=== PATIENT | female | born 1995 | race Caucasian/White ===

== ENCOUNTER → 2017-03-08 | Outpatient (CLI) | payer OTHER ==
[~2017-03-08] MED LIST: ACET50TA PO; IBUP80TA PO
[2017-03-08 19:13] LABS: BASO % 0.3 % (0.0-1.0); EOS # 0.4 K/mm3 (0.0-0.50); EOS % 4.1 % (0.0-3.0); LARGE UNSTAINED CELL # 0.1 K/mm3 (0.0-0.4); LYMPH # 2.2 K/mm3 (1.5-6.5); LYMPH % 24.3 % (24.0-44.0); MEAN CORPUSCULAR HEMOGLOBIN 27.5 pg (27.0-33.0); MEAN CORPUSCULAR HGB CONC 32.4 g/dl (32.0-36.5); MEAN CORPUSCULAR VOLUME 85.1 fl (80.0-96.0); MONO # 0.5 K/mm3 (0.0-0.8); MONO % 5.6 % (0.0-5.0); NEUTROPHILS # 5.6 K/mm3 (1.8-7.7); NEUTROPHILS % 64.7 % (36.0-66.0); PLATELET COUNT, AUTOMATED 272 k/mm3 (150-450); RED CELL DISTRIBUTION WIDTH 13.3 % (11.5-14.5); WHITE BLOOD COUNT 8.7 K/mm3 (4.0-10.0)
[2017-03-10 11:03] LABS: HBsAg Prenatal NEGATIVE (NEGATIVE)
== END ==
LOC: M SMT 13:57
PROVIDERS: ATTEND Advanced Practice Midwife
DX: Z34.81 Encounter for supervision of other normal pregnancy, first trimester (principal)

== ENCOUNTER → 2017-04-22 | Outpatient (CLI) | payer OTHER ==
--- NOTE | 2017-04-23 03:17 | REP ---
Clinical: Anatomical evaluation. Comparison: None . Findings: Examination demonstrates a single live intrauterine in cephalic presentation. motion is identified by technologist. Placenta is noted posteriorly and grade zero without evidence for placenta previa or abruption. Amniotic fluid volume is normal. Cervix measures 4.6 cm in length and appears closed. No evidence for nuchal cord. Gestational age by LMP 19 weeks 6 days with ESTELLE 09/10/2017 . Gestational age by current measurements 18 weeks 1 day with ESTELLE 09/22/2017 . FHR equals 144 beats per minute. BPD 4.1 cm 18 weeks 3 days HC 15.1 cm 18 weeks 1 day AC 12.8 cm 18 weeks 2 days FL 2.7 cm 18 weeks 0 days HL 2.6 cm 18 weeks 2 days HC/AC ratio 1.18 Estimated weight 229 grams ( 49th percentile). Anatomical assessment demonstrates normal structures including cranium, choroid plexus, cavum, cerebellum/posterior fossa, facial features, lungs, four-chamber heart/ventricular outflow tracts, diaphragm, stomach, cord insertion/three-vessel cord, kidneys/bladder, spine, and extremities. Impression: 1. Single live intrauterine in cephalic presentation demonstrating appropriate interval growth. 2. Anatomical assessment is complete and normal. Signed by Crow Eaton MD 04/23/2017 03:09 A
== END ==
LOC: M SMT 13:01
PROVIDERS: ATTEND Advanced Practice Midwife
DX: Z34.82 Encounter for supervision of other normal pregnancy, second trimester (principal)

== ENCOUNTER 2017-05-22 12:43 | Outpatient (CLI) | payer OTHER ==
[~2017-05-22] VITALS: Ht 162.6 cm; Wt 70.0 kg
[2017-05-22] MEDS ORDERED: LR 1,000 ML IV SCH (12:58)
[2017-05-22] MEDS ORDERED: LACTATED RINGER'S 1000 ML IV STA (12:58)
[2017-05-22 13:01] VITALS: BP 118/60
[2017-05-22 13:22] LABS: BASO % 0.3 % (0.0-1.0); EOS # 0.1 K/mm3 (0.0-0.50); EOS % 0.9 % (0.0-3.0); LARGE UNSTAINED CELL # 0.1 K/mm3 (0.0-0.4); LARGE UNSTAINED CELL % 0.8 % (0.0-4.0); LYMPH # 1.4 K/mm3 (1.5-6.5); LYMPH % 12.4 % (24.0-44.0); MEAN CORPUSCULAR HEMOGLOBIN 28.4 pg (27.0-33.0); MEAN CORPUSCULAR HGB CONC 32.9 g/dl (32.0-36.5); MEAN CORPUSCULAR VOLUME 86.1 fl (80.0-96.0); MONO # 0.4 K/mm3 (0.0-0.8); MONO % 3.9 % (0.0-5.0); NEUTROPHILS # 8.9 K/mm3 (1.8-7.7); NEUTROPHILS % 81.6 % (36.0-66.0); PLATELET COUNT, AUTOMATED 219 k/mm3 (150-450); RED CELL DISTRIBUTION WIDTH 13.6 % (11.5-14.5); WHITE BLOOD COUNT 10.9 K/mm3 (4.0-10.0)
[2017-05-22 13:57] LABS: ALBUMIN 3.2 GM/DL (3.2-5.2); ALKALINE PHOSPHATASE 63 U/L (45-117); ALT/SGPT 7 U/L (12-78); ANION GAP 6 MEQ/L (8-16); AST/SGOT 7 U/L (15-37); BILIRUBIN,TOTAL 0.4 MG/DL (0.2-1.0); BLOOD UREA NITROGEN 6 MG/DL (7-18); CALCIUM LEVEL 8.4 MG/DL (8.5-10.1); CARBON DIOXIDE LEVEL 24 MEQ/L (21-32); CHLORIDE LEVEL 108 MEQ/L (98-107); CREATININE FOR GFR 0.49 MG/DL (0.55-1.02); GLUCOSE, FASTING 92 MG/DL (70-105); POTASSIUM SERUM 4.8 MEQ/L (3.5-5.1); SODIUM LEVEL 138 MEQ/L (136-145); TOTAL PROTEIN 6.4 GM/DL (6.4-8.2)
[2017-05-22 15:32] VITALS: BP 132/67
[2017-09-10] MEDS ORDERED: VALA500T2 PO (08:29)
[2017-09-10] MEDS ORDERED: RANI150C PO (08:29)
== END 2017-05-22 16:16 | disposition home or self-care (01) ==
LOC: M LDO 12:43
PROVIDERS: ATTEND Specialist
DX: O99.89 Other specified diseases and conditions complicating pregnancy, childbirth and the puerperium (principal); Z3A.22 22 weeks gestation of pregnancy; R11.2 Nausea with vomiting, unspecified; R19.7 Diarrhea, unspecified

== ENCOUNTER → 2017-07-15 | Outpatient (CLI) | payer OTHER ==
[~2017-07-15] MED LIST changes: +COLA100C5 PO; +MOTR200T44 PO; +PERC5TAB12 PO; +PERCOCET PO; +RANI150C PO; +VALA500T2 PO
[2017-07-15 13:28] LABS: BASO % 0.2 % (0.0-1.0); EOS # 0.2 K/mm3 (0.0-0.50); EOS % 1.6 % (0.0-3.0); LARGE UNSTAINED CELL # 0.1 K/mm3 (0.0-0.4); LARGE UNSTAINED CELL % 1.2 % (0.0-4.0); LYMPH % 20.5 % (24.0-44.0); MEAN CORPUSCULAR HEMOGLOBIN 27.9 pg (27.0-33.0); MEAN CORPUSCULAR HGB CONC 33.4 g/dl (32.0-36.5); MEAN CORPUSCULAR VOLUME 83.6 fl (80.0-96.0); MONO # 0.6 K/mm3 (0.0-0.8); MONO % 6.6 % (0.0-5.0); NEUTROPHILS # 6.6 K/mm3 (1.8-7.7); NEUTROPHILS % 69.9 % (36.0-66.0); PLATELET COUNT, AUTOMATED 219 k/mm3 (150-450); WHITE BLOOD COUNT 9.4 K/mm3 (4.0-10.0)
== END ==
LOC: M LAB 11:54
PROVIDERS: ATTEND Advanced Practice Midwife
DX: Z34.83 Encounter for supervision of other normal pregnancy, third trimester (principal)

== ENCOUNTER → 2017-08-25 | Outpatient (REF) | payer OTHER | LOC: M LAB REF 16:47 | PROVIDERS: ATTEND Obstetrics & Gynecology | DX: Z34.83 Encounter for supervision of other normal pregnancy, third trimester (principal) ==

== ENCOUNTER 2017-09-15 05:23 | Inpatient (IN) | payer OTHER ==
[2017-09-15] VITALS (7 sets, daily range): BP systolic 113–129; BP diastolic 58–78
[~2017-09-15] VITALS: Ht 162.6 cm; Wt 88.0 kg
[~2017-09-15 05:23] MED LIST changes: -COLA100C5 PO; -MOTR200T44 PO; -PERC5TAB12 PO; -PERCOCET PO
[2017-09-15] MEDS ORDERED: LR 800 ML IV ONE (05:45)
[2017-09-15] MEDS ORDERED: LR 1,000 ML IV SCH ×2 (05:45→10:30)
[2017-09-15] MEDS ORDERED: BICITRA 30ML SOLN UDC PO ONE (05:45)
[2017-09-15 05:55] LABS: MEAN CORPUSCULAR HEMOGLOBIN 27.2 pg (27.0-33.0); MEAN CORPUSCULAR HGB CONC 33.6 g/dl (32.0-36.5); PLATELET COUNT, AUTOMATED 312 10^3/uL (150-450); RED CELL DISTRIBUTION WIDTH 13.9 % (11.5-14.5); WHITE BLOOD COUNT 12.1 10^3/uL (4.0-10.0)
[2017-09-15] MEDS ORDERED: MORPHINE PRES-FREE INJ 10 MG/10 ML VIAL (J2274) As Ordered ONE (08:47)
[2017-09-15] MEDS ORDERED: OXYTOCIN INJ 10 UNITS/ML VIAL (J2590) As Ordered ONE (08:47)
[2017-09-15] MEDS ORDERED: METOCLOPRAMIDE INJ 10MG/2ML VIAL (J2765) IV PRN (08:56)
[2017-09-15] MEDS ORDERED: NALOXONE INJ 0.4 MG/1 ML VIAL (J2310) IV PRN ×2 (08:56)
[2017-09-15] MEDS ORDERED: ONDANSETRON 4MG/2ML VIAL (J2405) IV PRN ×4 (08:56→13:00)
[2017-09-15] MEDS ORDERED: NALBUPHINE HCL 10 MG/ML AMP (J2300) IV PRN ×2 (08:56→10:30)
[2017-09-15] MEDS ORDERED: PRENATAL VITAMINS CHEWABLE TABLET PO SCH (09:00)
[2017-09-15] MEDS: PRENATAL VITAMINS CHEWABLE TABLET PO SCH (09:00)
[2017-09-15] MEDS ORDERED: ePHEDrine SULFATE 25 MG/5 ML(5MG/ML) SYRINGE As Ordered ONE (09:06)
[2017-09-15] MEDS ORDERED: ONDANSETRON 4MG/2ML VIAL (J2405) As Ordered ONE (09:27)
[2017-09-15] MEDS ORDERED: KETOROLAC 60 MG/2 ML VIAL (J1885) As Ordered ONE (09:27)
[2017-09-15 09:53] LABS: CORD GAS O2 SAT V 29.6 %; CORD GAS PCO2 V 45.6 mmHg; CORD GAS PH V 7.34 UNITS; CORD GAS PO2 V 14.9 mmHg; CORD GAS SBC V 21.1 MEQ/L; CORD GAS TCO2 V 25.4 MEQ/L
[2017-09-15] MEDS ORDERED: IBUPROFEN 800 MG TAB PO PRN (10:00)
[2017-09-15] MEDS ORDERED: DOCUSATE SODIUM 100 MG CAP PO PRN ×2 (10:00→13:00)
[2017-09-15] MEDS ORDERED: OXYTOCIN DRIP 30 UNITS in APPROPRIATE DILUENT 1 EA IV ONE (10:00)
[2017-09-15] MEDS ORDERED: DIBUCAINE 1% OINTMENT 30GM TOP PRN (10:00)
[2017-09-15] MEDS ORDERED: MEASLES,MUMPS,RUBELLA VACCINE INJ (MMR-II) (90707) SC SCH ×2 (10:00→13:00)
[2017-09-15] MEDS ORDERED: METHYLERGONOVINE MALEATE 0.2 MG TAB PO PRN (10:00)
[2017-09-15] MEDS ORDERED: ACETAMINOPHEN 500 MG TAB PO PRN (10:00)
[2017-09-15] MEDS ORDERED: RHOGAM 300 MCG (1500 IU) INJ (J2790) IM SCH ×2 (10:00→13:00)
[2017-09-15] MEDS ORDERED: MEPERIDINE INJ 25 MG/ML VIAL (J2175) IV PRN (10:30)
[2017-09-15] MEDS ORDERED: fentaNYL 100 MCG/2 ML INJECTION (J3010) IV PRN (10:30)
[2017-09-15] MEDS ORDERED: diphenhydrAMINE INJ 50MG/ML VIAL (J1200) IV PRN (10:30)
[2017-09-15] MEDS: LR 1,000 ML IV SCH ×2 (13:00→20:47)
[2017-09-15] MEDS ORDERED: PERCOCET 5MG/325MG TAB PO PRN (13:00)
[2017-09-15] MEDS ORDERED: KETOROLAC 30 MG/ML VIAL (J1885) IV SCH (14:00)
[2017-09-15] MEDS: KETOROLAC 30 MG/ML VIAL (J1885) IV SCH ×2 (15:39→21:26)
[2017-09-16 02:00] VITALS: BP 116/62
[2017-09-16] MEDS: KETOROLAC 30 MG/ML VIAL (J1885) IV SCH (02:29)
[2017-09-16 06:03] VITALS: BP 117/62
[2017-09-16 07:10] LABS: MEAN CORPUSCULAR HEMOGLOBIN 27.3 pg (27.0-33.0); MEAN CORPUSCULAR HGB CONC 32.5 g/dl (32.0-36.5); PLATELET COUNT, AUTOMATED 241 10^3/uL (150-450); WHITE BLOOD COUNT 10.5 10^3/uL (4.0-10.0)
--- NOTE | 2017-09-16 07:30 | RO ---
DATE OF PROCEDURE: 09/15/2017 PREPROCEDURE DIAGNOSIS: 39 and 1/7 weeks gestation, active genital herpes simplex virus (HSV) infection. POSTPROCEDURE DIAGNOSIS: 39 and 1/7 weeks gestation, active genital herpes simplex virus (HSV) infection. PROCEDURE: Primary low transverse section. SURGEON: Dr. Jayesh Griffith CIGAR MAKING MACHINE SUPERVISOR: Shreya Galo CNM ANESTHESIA: Spinal. ESTIMATED BLOOD LOSS: 500 mL. URINE OUTPUT: 50 mL. FINDINGS: 7 pound 10 ounce or 3470 gram male infant, Apgars 9 and 9. Nuchal cord times two. Normal uterus, fallopian tubes and ovaries. DESCRIPTION OF PROCEDURE: The patient was taken to the operating room where spinal anesthesia was induced. She was prepped and draped in a sterile fashion in the supine position. A Hinton catheter was placed. A Pfannenstiel skin incision was made with the scalpel and carried through to the fascia. The fascia was nicked and extended. The fascia was dissected off the rectus muscles. The rectus muscles were divided in the midline and the peritoneal cavity was entered. A bladder flap was created. A curvilinear incision was made in the lower uterine segment until clear fluid was noted. This was extended manually. The was delivered from the vertex position without difficulty. Nuchal cord times two was reduced manually. Shoulders delivered with ease. The infant cried spontaneously and was handed off to the awaiting nurses. The placenta was expressed. The uterus was exteriorized and cleared of clots and debris. The uterine incision was closed with #0 Vicryl in a running locked fashion. A second imbricating layer of #0 Vicryl was placed. The uterus was placed back in the abdominal cavity. The peritoneum was closed with #2-0 Vicryl in a running fashion. The fascia was closed with #0 Vicryl in a running fashion. The deep subcutaneous layer was irrigated and closed with #3-0 chromic. The skin was closed with #4-0 Monocryl subcuticular sutures. Sponge, needle and instrument counts were correct.
[2017-09-16] MEDS: PRENATAL VITAMINS CHEWABLE TABLET PO SCH (08:28)
[2017-09-16 10:40] VITALS: BP 112/62
[2017-09-16] MEDS: IBUPROFEN 800 MG TAB PO SCH ×2 (11:29→18:05)
[2017-09-16 14:30] VITALS: BP 120/68
[2017-09-16 18:11] VITALS: BP 122/64
[2017-09-16 22:00] VITALS: BP 109/60
[2017-09-17] MEDS: IBUPROFEN 800 MG TAB PO SCH ×2 (02:27→11:00)
[2017-09-17 06:00] VITALS: BP 139/83
[2017-09-17] MEDS ORDERED: PERC5TAB12 PO (06:12)
[2017-09-17] MEDS: PERCOCET 5MG/325MG TAB PO PRN ×2 (06:17→12:49)
[2017-09-17] MEDS: PRENATAL VITAMINS CHEWABLE TABLET PO SCH (09:07)
[2017-09-17] MEDS ORDERED: MOTR200T44 PO (09:24)
[2017-09-17] MEDS ORDERED: PERCOCET PO (09:24)
[2017-09-17] MEDS ORDERED: COLA100C5 PO (09:24)
--- NOTE | 2017-09-20 15:28 | DSES ---
DATE OF ADMISSION: 09/15/2017 DATE OF DISCHARGE: 09/17/2017 HISTORY: A 21-year-old (G) 2, para (P) 1, female at 39-1/7 weeks gestation by 11-week ultrasound who presents for primary section due to genital herpes simplex virus (HSV) outbreak on 09/08/2017. She did not take her prescribed HSV prophylaxis as ordered. HOSPITAL COURSE: On 09/15/2017, the patient underwent primary low transverse section without complication for a male . Her postoperative course was unremarkable. She had adequate return of bladder and bowel function. She was deemed stable for discharge on postoperative day number two. ADMISSION DIAGNOSES: 1. , term. 2. Active genital herpes simplex virus (HSV). POSTOPERATIVE DIAGNOSIS: Delivered. PROCEDURE: Primary low transverse section. DISPOSITION: The patient will followup with Dr. Griffith in two weeks. Instructions were reviewed.
== END 2017-09-17 14:05 | disposition home or self-care (01) | DRG 540 ==
LOC: M LDI 05:23 → M OBS 12:04
PROVIDERS: ADMIT Specialist; ATTEND Specialist
PROC: 10D00Z1 Extraction of Products of Conception, Low, Open Approach (ICD-10-PCS; principal; 2017-09-15 08:30)
DX: O98.32 Other infections with a predominantly sexual mode of transmission complicating childbirth (principal); A60.09 Herpesviral infection of other urogenital tract; Z37.0 Single live birth; Z3A.39 39 weeks gestation of pregnancy

== ENCOUNTER → 2018-08-24 | Outpatient (CLI) | payer OTHER ==
[2018-08-24 17:36] LABS: BASO % 0.2 % (0.0-1.0); EOS # 0.2 10^3/uL (0.0-0.50); EOS % 2.5 % (0.0-3.0); HEMATOCRIT 35.7 % (36.0-47.0); HEMOGLOBIN 11.9 g/dl (12.0-15.5); IMMATURE GRANULOCYTE % 0.3 % (0-3.0); LYMPH # 2.3 10^3/uL (1.5-6.5); LYMPH % 27.1 % (24.0-44.0); MEAN CORPUSCULAR HEMOGLOBIN 27.3 pg (27.0-33.0); MEAN CORPUSCULAR HGB CONC 33.3 g/dl (32.0-36.5); MEAN CORPUSCULAR VOLUME 81.9 fl (80.0-96.0); MONO # 0.9 10^3/uL (0.0-0.8); MONO % 10.1 % (0.0-5.0); NEUTROPHILS # 5.2 10^3/uL (1.8-7.7); NEUTROPHILS % 59.8 % (36.0-66.0); PLATELET COUNT, AUTOMATED 254 10^3/uL (150-450); RED BLOOD COUNT 4.36 10^6/uL (4.00-5.40); RED CELL DISTRIBUTION WIDTH 14.2 % (11.5-14.5); WHITE BLOOD COUNT 8.6 10^3/uL (4.0-10.0)
[2018-08-24 22:56] LABS: CHLAMYDIA DNA AMPLIFICATION NEGATIVE (NEGATIVE); GC DNA AMPLIFICATION NEGATIVE (NEGATIVE)
[2018-08-26 13:05] LABS: HBsAg Prenatal NEGATIVE (NEGATIVE); HIV 1&2 SCREEN CENTAUR NEGATIVE (NEGATIVE); RUBELLA IgG QUALITATIVE IMMUNE (IMMUNE)
[2018-08-26 13:05] LABS: HEPATITIS C VIRUS ABY INDEX 0.1 INDEX (<0.8)
== END ==
LOC: M LAB 16:38
DX: Z34.81 Encounter for supervision of other normal pregnancy, first trimester (principal); Z3A.08 8 weeks gestation of pregnancy
CPT/HCPCS: 86762

== ENCOUNTER → 2018-09-20 | Outpatient (CLI) | payer OTHER | LOC: M RAD 13:53 | DX: Z36.89 Encounter for other specified antenatal screening (principal); Z3A.20 20 weeks gestation of pregnancy | CPT/HCPCS: 76811 ==

== ENCOUNTER → 2018-10-11 | Outpatient (CLI) | payer OTHER | LOC: M RAD 15:33 | DX: Z34.82 Encounter for supervision of other normal pregnancy, second trimester (principal); Z3A.22 22 weeks gestation of pregnancy | CPT/HCPCS: 76816 ==

== ENCOUNTER → 2018-12-27 | Outpatient (CLI) | payer OTHER ==
[~2018-12-27] MED LIST changes: -ACET50TA PO; +COLA100C5 PO; +MAPA500T2 PO; +MOTR200T44 PO; +PERC5TAB12 PO; +PERCOCET PO; -VALA500T2 PO; +VALA500T5 PO
[2018-12-27 13:12] LABS: HEMATOCRIT 35.4 % (36.0-47.0); HEMOGLOBIN 11.3 g/dl (12.0-15.5); MEAN CORPUSCULAR HEMOGLOBIN 26.7 pg (27.0-33.0); MEAN CORPUSCULAR HGB CONC 31.9 g/dl (32.0-36.5); MEAN CORPUSCULAR VOLUME 83.5 fl (80.0-96.0); PLATELET COUNT, AUTOMATED 267 10^3/uL (150-450); RED BLOOD COUNT 4.24 10^6/uL (4.00-5.40); WHITE BLOOD COUNT 11.3 10^3/uL (4.0-10.0)
== END ==
LOC: M LAB 11:07
PROVIDERS: ATTEND Advanced Practice Midwife
DX: Z36.89 Encounter for other specified antenatal screening (principal)

== ENCOUNTER → 2019-01-17 | Outpatient (REF) | payer OTHER | LOC: M LAB REF 17:22 | PROVIDERS: ATTEND Advanced Practice Midwife | DX: O34.219 Maternal care for unspecified type scar from previous cesarean delivery (principal); Z3A.00 Weeks of gestation of pregnancy not specified ==

== ENCOUNTER 2019-02-01 21:10 | Outpatient (CLI) | payer OTHER ==
[~2019-02-01] VITALS: Ht 162.6 cm; Wt 90.2 kg
[2019-02-01 21:26] VITALS: BP 143/87
--- NOTE | 2019-02-02 06:51 | IPN ---
DATE: 02/01/2019 Melodie is a 23-year-old, 3, para 2-0-0-2, at 38-6/7 weeks gestation, expected date of confinement (EDC) of 02/09/2019 based on first trimester ultrasound, who presents to labor and delivery today with report of intermittent back cramping and pelvic pressure. She denies vaginal bleeding or leakage of fluid. The fetus has been active. Her care was initiated [facility] in the first trimester. course complicated by a prior section, smoking throughout , HSV II. She has been taking Valtrex since 36 weeks gestation. Denies any signs or symptoms of any outbreak. OBSTETRICAL HISTORY: March 2015, 40 weeks 1 day, 7 pounds 15 ounce male, vaginal delivery. August 2017, 39 weeks, 7 pound 10 ounces male, section due to HSV outbreak. OBSTETRIC LABS: O+, antibody screen negative, rubella immune, VDRL nonreactive. Urine culture no growth. Hepatitis B surface antigen negative. HIV negative. Hepatitis C antibody nonreactive. Gonorrhea and chlamydia negative. She declined genetic serum screening markers. Gestational diabetic screening negative at 116. GBS is positive. PAST MEDICAL HISTORY: HSV II. SURGERIES: Prior section. FAMILY HISTORY: Noncontributory. SOCIAL HISTORY: The patient is single, however, her partner is at bedside as well as her mom for support. She is a smoker, 3/4 pack a day. Denies history of abuse - physical, sexual, emotional. She does have a history of HSV II. ALLERGIES: No known drug allergies. CURRENT MEDICATIONS: - Zantac 150 twice a day - valacyclovir 1 gram daily OBJECTIVE: 98.7 is the temperature, 95 pulse, 18 respirations, BP 131/66. She appears mildly uncomfortable. heart rate is 140 with moderate variability, positive accelerations, no decelerations. Contractions every 10-11 minutes. They do palpate mild. Her sterile vaginal exam is 1-1/2 cm dilated, 75% effaced, minus two station. No bloody show, posterior and moderate texture. ASSESSMENT: Intrauterine at 38-6/7 weeks. heart rate category one. Not in active labor. Normal discomforts of . PLAN: Discharge the patient to home. Keep tomorrow's appointment as scheduled. I did review signs and symptoms of active labor, kick counts and access to care. The patient agrees with the plan.
[2019-02-02] MEDS ORDERED: VALT1TAB PO (12:24)
== END 2019-02-01 22:20 | disposition home or self-care (01) ==
LOC: M LDO 21:10
PROVIDERS: ATTEND Advanced Practice Midwife
DX: O26.893 Other specified pregnancy related conditions, third trimester (principal); R10.30 Lower abdominal pain, unspecified; O47.1 False labor at or after 37 completed weeks of gestation; Z3A.38 38 weeks gestation of pregnancy
CPT/HCPCS: 59025; G0378; G0463

== ENCOUNTER 2019-02-02 11:55 | Inpatient (IN) | payer OTHER ==
[~2019-02-02] VITALS: Ht 162.6 cm; Wt 87.2 kg
[2019-02-02] VITALS (23 sets, daily range): BP systolic 98–141; BP diastolic 50–86
[2019-02-02] MEDS ORDERED: VALT1TAB PO (12:24)
[2019-02-02] MEDS ORDERED: PENICILLIN G POTASSIUM IV 5 MU in D5W MINI-BAG PLUS 100 ML IV STA (12:42)
[2019-02-02] MEDS ORDERED: LR 1,000 ML IV SCH (12:42)
[2019-02-02] MEDS ORDERED: LACTATED RINGER'S 1000 ML IV STA (12:42)
[2019-02-02] MEDS ORDERED: OXYTOCIN DRIP 30 UNITS in APPROPRIATE DILUENT 1 EA IV SCH (12:45)
[2019-02-02 13:15] LABS: HEMOGLOBIN 11.2 g/dl (12.0-15.5); MEAN CORPUSCULAR HEMOGLOBIN 25.9 pg (27.0-33.0); MEAN CORPUSCULAR HGB CONC 32.9 g/dl (32.0-36.5); MEAN CORPUSCULAR VOLUME 78.7 fl (80.0-96.0); PLATELET COUNT, AUTOMATED 260 10^3/uL (150-450); RED BLOOD COUNT 4.32 10^6/uL (4.00-5.40); WHITE BLOOD COUNT 12.3 10^3/uL (4.0-10.0)
--- NOTE | 2019-02-02 13:43 | HPE ---
DATE OF ADMISSION: 02/02/2019 23-year-old, (G) 3, para (P) 2, female at 39 and 0/7 weeks gestation by eight week ultrasound, with expected date of confinement (EDC) 02/09/2019, who presents with contractions every 4-5 minutes occurring since the evening before. She presented to triage the night before with contractions, but no cervical change and was sent home. She denies vaginal bleeding. Contractions increased in intensity. COURSE: The patient initiated care at 8 weeks gestation, 07/01/2018. Her first trimester blood pressure was 134/78. course was significant for history of vaginal herpes. She did start Valtrex treatment at 35 weeks gestation. She has a history of prior and strongly desires trial of labor after (TOLAC) option. OBSTETRICAL HISTORY: 1. March 2015, 40 week vaginal delivery, 7 pound 15 ounce male . 2. August 2017, 39 week delivery, 7 pound 10 ounce male infant. section for genital herpes. MEDICAL HISTORY: None. SURGICAL HISTORY: times one. ALLERGIES: None. SOCIAL HISTORY: The patient smokes a half a pack of cigarettes per day. She denies alcohol or drug use. She lives in [place], [place]. FAMILY HISTORY: Noncontributory. PHYSICAL EXAMINATION: 136/74. Pulse 84. She appears uncomfortable. Head and Neck Exam: Normal. Lungs: Clear. Heart: Regular rate and rhythm. Abdomen: Nontender. Gravid. heart tones Category one. Sterile Vaginal Exam: 3 cm, 90%, -2, posterior, soft, vertex. Contractions every 4-5 minutes, moderate. LABS: Blood type is O positive. Rubella immune. RPR nonreactive. Hepatitis B and C negative. HIV negative. Diabetes screen 116. GBS positive 01/17/2019. ASSESSMENT: 23-year-old, G3, P2, female at 39 and 0/7 weeks gestation who presents in early labor. The patient is a TOLAC candidate. PLAN: Patient is admitted on 02/02/2019. Start antibiotics for GBS prophylaxis.
[2019-02-02] MEDS ORDERED: FENTANYL 2MCG/ML ROPIVACAINE 0.2% IN 0.9% NACL 100ML IVBAG As Ordered ONE (15:14)
[2019-02-02] MEDS ORDERED: EPIDURAL/PCA KEYS XX PRN (17:15)
[2019-02-02] MEDS ORDERED: EPIDURAL COMMENT XX SCH (17:15)
[2019-02-02] MEDS ORDERED: PENICILLIN G POTASSIUM IV 2.5 MU in APPROPRIATE DILUENT 1 EA IV SCH (17:15)
[2019-02-02] MEDS ORDERED: REFRIGERATOR IV KEYS XX PRN (17:15)
[2019-02-02] MEDS ORDERED: LACTATED RINGER'S 1000 ML IV PRN (17:15)
[2019-02-02] MEDS ORDERED: ONDANSETRON 4MG/2ML VIAL (J2405) IV PRN ×2 (17:15→20:30)
[2019-02-02] MEDS ORDERED: ePHEDrine SULFATE 25 MG/5 ML(5MG/ML) SYRINGE IV PRN (17:15)
[2019-02-02] MEDS ORDERED: NALOXONE INJ 0.4 MG/1 ML VIAL (J2310) IV PRN (17:15)
[2019-02-02] MEDS ORDERED: FENTANYL/ROPIVACAINE/NACL BAG 100 ML EPIDURAL SCH (17:15)
[2019-02-02] MEDS ORDERED: diphenhydrAMINE INJ 50MG/ML VIAL (J1200) IV PRN (17:15)
[2019-02-02] MEDS ORDERED: CALCIUM CARBONATE 500 MG CHEW U/D PO ONE (19:30)
[2019-02-02 20:08] LABS: CORD GAS ABE V -3.2; CORD GAS HCO3 V 22.4 MEQ/L; CORD GAS PCO2 V 41.8 mmHg; CORD GAS PH V 7.346 UNITS; CORD GAS SBC V 20.5 MEQ/L; CORD GAS TCO2 V 23.6 MEQ/L
[2019-02-02] MEDS ORDERED: IBUPROFEN 800 MG TAB PO PRN (20:30)
[2019-02-02] MEDS ORDERED: METHYLERGONOVINE MALEATE 0.2 MG TAB PO PRN (20:30)
[2019-02-02] MEDS ORDERED: RHOGAM 300 MCG (1500 IU) INJ (J2790) IM SCH (20:30)
[2019-02-02] MEDS ORDERED: OXYTOCIN DRIP 30 UNITS in APPROPRIATE DILUENT 1 EA IV ONE (20:30)
[2019-02-02] MEDS ORDERED: ACETAMINOPHEN 500 MG TAB PO PRN (20:30)
[2019-02-02] MEDS ORDERED: DOCUSATE SODIUM 100 MG CAP PO PRN (20:30)
[2019-02-02] MEDS ORDERED: DIBUCAINE 1% OINTMENT 30GM TOP PRN (20:30)
[2019-02-02] MEDS ORDERED: MEASLES,MUMPS,RUBELLA VACCINE INJ (MMR-II) (90707) SC SCH (20:30)
[2019-02-03 06:00] VITALS: BP 113/56
[2019-02-03] MEDS: PRENATAL VITAMINS CHEWABLE TABLET PO SCH (08:00)
--- NOTE | 2019-02-03 08:40 | DN ---
DATE OF DELIVERY: 02/02/2019 PREDELIVERY DIAGNOSIS: 39 weeks 0 days gestation, trial of labor after (TOLAC). POSTDELIVERY DIAGNOSIS: Delivered. PROCEDURE: Spontaneous vaginal delivery, successful vaginal after section (). CHICKEN CLEANER: Jayesh Griffith MD ANESTHESIA: Epidural. ESTIMATED BLOOD LOSS: 300 mL. FINDINGS: 7 pound 6 ounce, 3340 gram, male with scores of 8 and 8. DELIVERY SUMMARY: After second stage of approximately 10 minutes, the patient had spontaneous delivery of a 7 pound 6 ounce male infant, scores of 8 and 8, under epidural anesthesia. Nuchal cord times two was reduced manually. The shoulders delivered with ease. The was handed to the mother. The cord was then clamped and cut. The placenta delivered spontaneously and appeared to be intact. The patient received IV Pitocin immediately after delivery of the placenta. There were no vaginal lacerations present. Sponge and needle counts were correct.
[2019-02-03 18:00] VITALS: BP 116/64
[2019-02-04 05:26] VITALS: BP 123/72
[2019-02-04] MEDS ORDERED: MAPA500T2 PO (07:54)
[2019-02-04] MEDS ORDERED: IBUP-1114 PO (07:54)
[2019-02-04] MEDS ORDERED: PRENTAB9 PO (07:54)
[2019-02-04] MEDS: PRENATAL VITAMINS CHEWABLE TABLET PO SCH (08:06)
== END 2019-02-04 15:45 | disposition home or self-care (01) | DRG 560 ==
LOC: M LDO 11:55 → M LDI 12:38 → M OBS 23:11
PROVIDERS: ADMIT Specialist; ATTEND Specialist
PROC: 10E0XZZ Delivery of Products of Conception, External Approach (ICD-10-PCS; principal; 2019-02-02)
DX: O34.211 Maternal care for low transverse scar from previous cesarean delivery (principal); O69.82X0 Labor and delivery complicated by other cord entanglement, without compression, not applicable or unspecified; Z37.0 Single live birth; Z3A.39 39 weeks gestation of pregnancy

== ENCOUNTER 2019-04-21 09:33 | Day surgery (SDC) | payer OTHER ==
[~2019-04-21] VITALS: Ht 162.6 cm; Wt 79.4 kg
[~2019-04-21 09:33] MED LIST changes: +IBUP-1114 PO; +LR 1,000 ML IV SCH; +PRENTAB9 PO; +VALT1TAB PO
[2019-04-21 10:00] LABS: URINE PREG TEST NEGATIVE (NEGATIVE)
[2019-04-21 10:02] LABS: HEMATOCRIT 40.1 % (36.0-47.0); HEMOGLOBIN 12.7 g/dl (12.0-15.5); MEAN CORPUSCULAR HEMOGLOBIN 25.8 pg (27.0-33.0); MEAN CORPUSCULAR HGB CONC 31.7 g/dl (32.0-36.5); MEAN CORPUSCULAR VOLUME 81.5 fl (80.0-96.0); PLATELET COUNT, AUTOMATED 292 10^3/uL (150-450); RED BLOOD COUNT 4.92 10^6/uL (4.00-5.40); WHITE BLOOD COUNT 6.7 10^3/uL (4.0-10.0)
[2019-04-21] MEDS ORDERED: BUPIVACAINE HCL 0.25% 30 ML VIAL As Ordered ONE (10:07)
[2019-04-21] MEDS ORDERED: OXYC1TAB23 PO (10:19)
[2019-04-21] MEDS ORDERED: IBUP-1022 PO (10:20)
[2019-04-21] MEDS ORDERED: MIDAZOLAM INJ 2 MG/2 ML VIAL (J2250) As Ordered ONE (10:39)
[2019-04-21] MEDS ORDERED: PROPOFOL 200 MG/20 ML VIAL As Ordered ONE (10:39)
[2019-04-21] MEDS ORDERED: fentaNYL 100 MCG/2 ML INJECTION (J3010) As Ordered ONE (10:39)
[2019-04-21] MEDS ORDERED: LIDOCAINE 2% INJ 100 MG/5 ML SDV (FOR ANES.) As Ordered ONE (10:39)
[2019-04-21] MEDS ORDERED: dexameTHASONE 4 MG/ML 1ML VIAL (J1100) As Ordered ONE (10:39)
[2019-04-21] MEDS ORDERED: ROCURONIUM BROMIDE 50 MG/5 ML VIAL As Ordered ONE (10:39)
[2019-04-21] MEDS ORDERED: ONDANSETRON 4MG/2ML VIAL (J2405) As Ordered ONE (10:44)
[2019-04-21] MEDS ORDERED: HYDROmorphone HCL 2 MG/ML 1ML VIAL (J1170) As Ordered ONE (10:45)
[2019-04-21] MEDS ORDERED: SUGAMMADEX SODIUM 500 MG/5 ML VIAL (BRIDION) As Ordered ONE (10:53)
[2019-04-21] MEDS ORDERED: KETOROLAC 60 MG/2 ML VIAL (J1885) As Ordered ONE (10:54)
[2019-04-21] MEDS ORDERED: oxyCODONE 5MG TAB As Ordered ONE (11:35)
[2019-04-21] MEDS ORDERED: METOCLOPRAMIDE INJ 10MG/2ML VIAL (J2765) As Ordered ONE (11:35)
[2019-04-21] MEDS ORDERED: oxyCODONE 5MG TAB PO PRN ×2 (11:45→12:00)
[2019-04-21] MEDS ORDERED: LR 1,000 ML IV SCH ×2 (11:45→12:00)
[2019-04-21] MEDS ORDERED: fentaNYL 100 MCG/2 ML INJECTION (J3010) IV PRN (12:00)
[2019-04-21] MEDS ORDERED: PROMETHAZINE INJ 25 MG/ML VIAL (J2550) IV PRN (12:00)
[2019-04-21] MEDS ORDERED: METOCLOPRAMIDE INJ 10MG/2ML VIAL (J2765) IV PRN (12:00)
[2019-04-21 13:32] VITALS: BP 127/68
--- NOTE | 2019-04-22 08:42 | RO ---
DATE OF OPERATION: 04/21/2019 PREOPERATIVE DIAGNOSIS: Undesired fertility. POSTOPERATIVE DIAGNOSIS: Undesired fertility. PROCEDURE: Laparoscopic bilateral salpingectomy. SURGEON: Jayesh Griffith MD SENIOR DESIGNER: ANESTHESIA: General endotracheal. ESTIMATED BLOOD LOSS: Minimal. URINE OUTPUT: 20 mL. FINDINGS: Normal uterus, fallopian tubes, and ovaries. Normal upper abdomen. DESCRIPTION OF PROCEDURE: Operative summary: Patient taken to the operating room where general endotracheal anesthesia was induced. She was prepped and draped in a sterile fashion in the dorsal lithotomy position. Bladder was emptied with a catheter. A ProtonMail uterine tenaculum was used as a manipulator. Periumbilical incision was made with a scalpel. Veress needle was placed through this incision while tenting up on the skin of the abdomen. Intra-abdominal location of the Veress needle was assessed with the use of a saline-filled syringe. Pneumoperitoneum was created. Veress needle was removed. 5 mm trocar using Visiport was inserted through this incision. 5 mm and 8 mm suprapubic ports were placed under direct visualization without difficulty. Tubes were grasped at their fimbriated end with the grasper. LigaSure device was used to coagulate and incise broad ligament attachments and tubes, and tubes were amputated near their origin. Both tubes were removed through the suprapubic port. Pneumoperitoneum was released. All instruments removed. The skin was closed with #4-0 Monocryl subcuticular sutures. Sponge, instrument, and needle counts were correct.
== END 2019-04-21 13:35 | disposition home or self-care (01) ==
LOC: M SDC 09:33
PROVIDERS: ATTEND Specialist
DX: Z30.2 Encounter for sterilization (principal)
CPT/HCPCS: 36415; 58661; 84703; 85027; 88302; J1100; J1170; J1885; J2250; J2405; J2765; J3010

== ENCOUNTER 2020-08-01 20:09 | Emergency (ER) | payer OTHER ==
[~2020-08-01] VITALS: Ht 162.6 cm; Wt 72.7 kg
[~2020-08-01 20:09] MED LIST changes: +IBUP-1022 PO; -LR 1,000 ML IV SCH; +OXYC1TAB23 PO
[2020-08-01] MEDS ORDERED: NAPR500T6 PO (20:14)
[2020-08-01] MEDS ORDERED: NS 1,000 ML IV ONE (20:45)
[2020-08-01] MEDS ORDERED: KETOROLAC 30 MG/ML 1ML VIAL IV ONE (20:45)
[2020-08-01] MEDS ORDERED: ONDANSETRON 4MG/2ML VIAL IV ONE (20:45)
[2020-08-01 21:17] LABS: BASO % 0.3 % (0.0-1.0); EOS # 0.2 10^3/uL (0.0-0.5); EOS % 1.6 % (0.0-3.0); HEMATOCRIT 38.5 % (36.0-47.0); HEMOGLOBIN 12.3 g/dl (12.0-15.5); LYMPH # 1.5 10^3/uL (1.5-5.0); LYMPH % 12.6 % (24.0-44.0); MEAN CORPUSCULAR HGB CONC 31.9 g/dl (32.0-36.5); MEAN CORPUSCULAR VOLUME 81.4 fl (80.0-96.0); MONO % 8.3 % (0.0-5.0); NEUTROPHILS # 9.3 10^3/uL (1.5-8.5); NEUTROPHILS % 76.8 % (36.0-66.0); PLATELET COUNT, AUTOMATED 361 10^3/uL (150-450); RED BLOOD COUNT 4.73 10^6/uL (4.00-5.40); WHITE BLOOD COUNT 12.1 10^3/uL (4.0-10.0)
[2020-08-01 21:43] LABS: ALBUMIN 4.3 GM/DL (3.2-5.2); ALT/SGPT 13 U/L (12-78); BILIRUBIN,DIRECT < 0.1 MG/DL (0.0-0.2); BILIRUBIN,TOTAL 0.4 MG/DL (0.2-1.0); LIPASE 52 U/L (73-393); TOTAL PROTEIN 7.7 GM/DL (6.4-8.2)
--- NOTE | 2020-08-01 21:47 | REPVR ---
PROCEDURE INFORMATION: Exam: US Nonobstetric Pelvis; Complete Exam date and time: 08/01/2020 9:00 PM Age: 24 years old Clinical indication: Pelvic pain; Additional info: Llq pain/irreg menses TECHNIQUE: Imaging protocol: Transabdominal pelvic nonobstetric ultrasound. Complete exam. Real time ultrasound with image documentation. COMPARISON: PELVIS NON-OB COMPLETE US 06/14/2020 11:51 AM FINDINGS: Uterus/cervix: Cervix measures 7.2 x 4.7 x 5.6 cm. Endometrium measures 7 mm. No uterine or endometrial masses are seen. Right adnexa: Ovary is normal. No mass. Normal blood flow. Left adnexa: Ovary is normal. No mass. Normal blood flow. Intraperitoneal space: None. IMPRESSION: Normal pelvic ultrasound. Electronically signed by: Forest Jensen On 08/01/2020 21:47:04 PM
[2020-08-01] MEDS ORDERED: ISOVUE-370 76% 100ML VIAL As Ordered ONE (22:00)
[2020-08-01] MEDS ORDERED: METOCLOPRAMIDE INJ 10MG/2ML VIAL (J2765 PER 1) IV ONE (22:15)
--- NOTE | 2020-08-01 22:29 | REPVR ---
PROCEDURE INFORMATION: Exam: CT Abdomen And Pelvis With Contrast Exam date and time: 08/01/2020 10:07 PM Age: 24 years old Clinical indication: Abdominal pain; Localized; Left lower quadrant (llq); Additional info: Llq pain TECHNIQUE: Imaging protocol: Computed tomography of the abdomen and pelvis with intravenous contrast. Radiation optimization: All CT scans at this facility use at least one of these dose optimization techniques: automated exposure control; mA and/or kV adjustment per patient size (includes targeted exams where dose is matched to clinical indication); or iterative reconstruction. Contrast material: ISOVUE 370; Contrast volume: 100 ml; Contrast route: INTRAVENOUS (IV); COMPARISON: US PELVIC NON-OB COMPLETE 08/01/2020 8:47 PM FINDINGS: Liver: There is a 10 mm enhancing nodule in the liver adjacent to the gallbladder fossa, likely a small hemangioma. Mild hepatomegaly. Gallbladder and bile ducts: Normal. No calcified stones. No ductal dilation. Pancreas: Normal. No ductal dilation. Spleen: Normal. No splenomegaly. Adrenals: Normal. No mass. Kidneys and ureters: Normal. No hydronephrosis. Stomach and bowel: There is mild wall thickening in the descending colon. Remainder of the colon is unremarkable. The small bowel is unremarkable. No bowel obstruction. Appendix: No evidence of appendicitis. Intraperitoneal space: Unremarkable. No free air. No significant fluid collection. Vasculature: Unremarkable. No abdominal aortic aneurysm. Lymph nodes: Unremarkable. No enlarged lymph nodes. Bladder: Unremarkable as visualized. Reproductive: Unremarkable as visualized. Bones/joints: Unremarkable. No acute fracture. Soft tissues: Unremarkable. IMPRESSION: 1. Mild wall thickening in the descending colon suggesting a mild colitis. No bowel obstruction. 2. Mild hepatomegaly. Probable small liver hemangioma adjacent to the gallbladder fossa. Electronically signed by: Forest Jensen On 08/01/2020 22:28:45 PM
[2020-08-02] MEDS ORDERED: FLAG500T PO (00:36)
[2020-08-02] MEDS ORDERED: ONDA4TAB6 PO (00:36)
[2020-08-02] MEDS ORDERED: CIPR-249 PO (00:36)
[2020-08-02 00:55] VITALS: BP 134/78
== END 2020-08-02 00:56 | disposition home or self-care (01) ==
LOC: M ED 20:09
DX: K52.9 Noninfective gastroenteritis and colitis, unspecified (principal); F32.9 Major depressive disorder, single episode, unspecified; F17.200 Nicotine dependence, unspecified, uncomplicated; F12.10 Cannabis abuse, uncomplicated
CPT/HCPCS: 74177; 76856; 80047; 80076; 81001; 83690; 84702; 85025; 93976; 96361; 96374; 96375; 99284; J1885; J2405; J2765; Q9967

== ENCOUNTER 2020-09-18 13:26 | Emergency (ER) | payer OTHER ==
[~2020-09-18] VITALS: Ht 162.6 cm; Wt 73.9 kg
[~2020-09-18 13:26] MED LIST changes: +CIPR-249 PO; +FLAG500T PO; +NAPR500T6 PO; +ONDA4TAB6 PO
[2020-09-18] MEDS ORDERED: DICY20TA11 (13:32)
[2020-09-18 13:56] LABS: BASO % 0.4 % (0.0-1.0); EOS # 0.1 10^3/uL (0.0-0.5); EOS % 0.6 % (0.0-3.0); HEMATOCRIT 38.3 % (36.0-47.0); HEMOGLOBIN 11.9 g/dl (12.0-15.5); LYMPH # 2.2 10^3/uL (1.5-5.0); LYMPH % 19.9 % (24.0-44.0); MEAN CORPUSCULAR HEMOGLOBIN 24.3 pg (27.0-33.0); MEAN CORPUSCULAR HGB CONC 31.1 g/dl (32.0-36.5); MEAN CORPUSCULAR VOLUME 78.3 fl (80.0-96.0); MONO # 0.8 10^3/uL (0.0-0.8); MONO % 7.1 % (0.0-5.0); NEUTROPHILS # 7.8 10^3/uL (1.5-8.5); NEUTROPHILS % 71.6 % (36.0-66.0); PLATELET COUNT, AUTOMATED 314 10^3/uL (150-450); RED BLOOD COUNT 4.89 10^6/uL (4.00-5.40); WHITE BLOOD COUNT 10.9 10^3/uL (4.0-10.0)
[2020-09-18] MEDS ORDERED: NS 1,000 ML IV ONE (14:00)
[2020-09-18] MEDS ORDERED: KETOROLAC 30 MG/ML 1ML VIAL IV ONE (14:00)
[2020-09-18] MEDS ORDERED: METOCLOPRAMIDE INJ 10MG/2ML VIAL (J2765 PER 1) IV ONE (14:00)
[2020-09-18 14:26] LABS: BILIRUBIN,DIRECT 0.1 MG/DL (0.0-0.2); BILIRUBIN,TOTAL 0.6 MG/DL (0.2-1.0); TOTAL PROTEIN 7.3 GM/DL (6.4-8.2)
[2020-09-18 14:36] LABS: C REACTIVE PROTEIN QUANTITATIV 1.11 MG/DL (0.00-0.30)
[2020-09-18 14:44] LABS: ERYTHROCYTE SEDIMENTATION RATE 8 mm/hr (0-20)
[2020-09-18] MEDS ORDERED: KETO10TAB PO (15:19)
[2020-09-18 15:31] VITALS: BP 132/67
== END 2020-09-18 15:33 | disposition home or self-care (01) ==
LOC: M ED 13:26
DX: R10.2 Pelvic and perineal pain (principal); F17.200 Nicotine dependence, unspecified, uncomplicated; Z79.899 Other long term (current) drug therapy
CPT/HCPCS: 36415; 80047; 80076; 83690; 84702; 85025; 85652; 86140; 96374; 96375; 99284; J1885; J2765

== ENCOUNTER 2020-09-24 10:10 | Emergency (ER) | payer OTHER ==
[~2020-09-24] VITALS: Ht 162.6 cm; Wt 75.6 kg
[~2020-09-24 10:10] MED LIST changes: +DICY20TA11; +KETO10TAB PO
[2020-09-24] MEDS ORDERED: PROC5TAB57 (10:26)
[2020-09-24] MEDS ORDERED: ONDANSETRON 4MG/2ML VIAL IV ONE (10:30)
[2020-09-24] MEDS ORDERED: NS 1,000 ML IV ONE ×2 (10:30→12:00)
[2020-09-24 10:58] LABS: BASO % 0.5 % (0.0-1.0); EOS # 0.1 10^3/uL (0.0-0.5); EOS % 0.7 % (0.0-3.0); HEMATOCRIT 40.9 % (36.0-47.0); HEMOGLOBIN 12.8 g/dl (12.0-15.5); LYMPH # 1.7 10^3/uL (1.5-5.0); MEAN CORPUSCULAR HEMOGLOBIN 24.2 pg (27.0-33.0); MEAN CORPUSCULAR HGB CONC 31.3 g/dl (32.0-36.5); MEAN CORPUSCULAR VOLUME 77.3 fl (80.0-96.0); MONO # 0.5 10^3/uL (0.0-0.8); MONO % 6.5 % (0.0-5.0); NEUTROPHILS # 5.3 10^3/uL (1.5-8.5); NEUTROPHILS % 69.9 % (36.0-66.0); PLATELET COUNT, AUTOMATED 377 10^3/uL (150-450); RED BLOOD COUNT 5.29 10^6/uL (4.00-5.40); WHITE BLOOD COUNT 7.6 10^3/uL (4.0-10.0)
--- NOTE | 2020-09-24 11:00 | ECGEPIP ---
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
[2020-09-24 11:41] LABS: ALBUMIN 4.4 GM/DL (3.2-5.2); ALT/SGPT 8 U/L (12-78); BILIRUBIN,DIRECT 0.2 MG/DL (0.0-0.2); BILIRUBIN,TOTAL 0.8 MG/DL (0.2-1.0); LIPASE 55 U/L (73-393); SALICYLATE LEVEL < 1.7 MG/DL (5.0-30.0)
[2020-09-24 11:42] LABS: ACETAMINOPHEN LEVEL < 2.0 UG/ML (10.0-30.0); ETHYL ALCOHOL (ETHANOL) < 0.003 % (0.000-0.010)
[2020-09-24] MEDS ORDERED: ISOVUE-370 76% 100ML VIAL As Ordered ONE (11:57)
[2020-09-24] MEDS ORDERED: METOCLOPRAMIDE INJ 10MG/2ML VIAL (J2765 PER 1) IV ONE (12:00)
[2020-09-24] MEDS ORDERED: LIDOCAINE 2% 5ML JELLY UROJET TOP ONE (12:15)
--- NOTE | 2020-09-24 12:27 | REP ---
INDICATION: vomiting COMPARISON: CT 08/01/2020. TECHNIQUE: CT Scan of the abdomen and pelvis was performed with intravenous administration of 100 cc of Isovue 370, without oral contrast. FINDINGS: Lung bases: No infiltrate is seen. There is a subpleural nodular density in the posterior left costophrenic sulcus measuring 8 mm in diameter unchanged since the prior exam. Liver: There is an 8 mm enhancing nodule in the right lobe of the liver adjacent to the gallbladder fossa which I suspect represents a small hemangioma as seen on prior CT exam. No other liver abnormality is seen. Gallbladder: Unremarkable. Spleen: Normal. Adrenals: Normal. Pancreas: Normal. Kidneys: Normal. Small and large bowel: There is no bowel obstruction. There is no free air. There may be mild diffuse thickening of the wall of the right colon raising the possibility of right-sided colitis. Free fluid: There is mild free fluid in the pelvis. Abdominal aorta: No aneurysm or dissection. Adenopathy: None. Appendix: Not inflamed. Osseous structures: Unremarkable. Pelvis: No mass. IMPRESSION: Subpleural nodular density in the posterior left costophrenic sulcus 8 mm in diameter, unchanged since recent CT. I suspect this is inflammatory, particularly if the patient has no history of cancer. Recommend follow-up CT chest in 6 months. Small enhancing nodule in the right lobe of the liver probably represents a hemangioma, approximately 8 mm in diameter. No free air or evidence of bowel obstruction. There may be diffuse thickening of the wall of the right colon, with possible right-sided colitis. Mild free fluid in the pelvis. <Electronically signed by Ramiro Page > 09/24/20 [id number]
[2020-09-24 12:52] LABS: AMPHETAMINES LEVEL URINE NEGATIVE (NEGATIVE); BARBITURATES URINE NEGATIVE (NEGATIVE); BENZODIAZEPINES URINE NEGATIVE (NEGATIVE); CANNABINOIDS URINE POSITIVE (NEGATIVE); COCAINE METABOLITE URINE NEGATIVE (NEGATIVE); METHADONE URINE NEGATIVE (NEGATIVE); OPIATES URINE NEGATIVE (NEGATIVE); PHENCYCLIDINE URINE NEGATIVE (NEGATIVE)
[2020-09-24] MEDS ORDERED: REGL10TA6 PO (13:04)
[2020-09-24 13:15] VITALS: BP 143/91
--- NOTE | 2020-09-25 14:35 | ED PDOC ---
Post-Departure Follow-Up ct abd/p faxed formal report of ct abd/p for fu palmirag Arelis Ashton MD Sep 25, 2020 14:35
== END 2020-09-24 13:25 | disposition home or self-care (01) ==
LOC: EDBD 10:10 → M ED 10:10
DX: R00.1 Bradycardia, unspecified (principal); R91.1 Solitary pulmonary nodule; R11.2 Nausea with vomiting, unspecified; F12.10 Cannabis abuse, uncomplicated; K52.9 Noninfective gastroenteritis and colitis, unspecified; F17.200 Nicotine dependence, unspecified, uncomplicated; Z79.899 Other long term (current) drug therapy; Z79.890 Hormone replacement therapy
CPT/HCPCS: 74177; 80047; 80076; 80307; 81001; 83605; 83690; 84443; 84702; 85025; 87040; 93005; 93041; 96361; 96374; 96375; 99285; G0480; J2405; J2765; Q9967

== ENCOUNTER 2020-10-06 09:30 | Emergency (ER) | payer OTHER ==
[~2020-10-06] VITALS: Ht 162.6 cm; Wt 67.6 kg
[~2020-10-06 09:30] MED LIST changes: +PROC5TAB57; +REGL10TA6 PO
[2020-10-06] MEDS ORDERED: XULA1DIS (09:40)
[2020-10-06 10:49] LABS: BLOOD UREA NITROGEN 13 MG/DL (7-18); CALCIUM LEVEL 9.2 MG/DL (8.5-10.1); CARBON DIOXIDE LEVEL 22 MEQ/L (21-32); CHLORIDE LEVEL 108 MEQ/L (98-107); CREATININE FOR GFR 0.81 MG/DL (0.55-1.30); GLOMERULAR FILTRATION RATE > 60.0 (>60); GLUCOSE, FASTING 104 MG/DL (70-100); HCG, SERUM QUALITATIVE NEGATIVE (NEGATIVE); HEMATOCRIT 34.3 % (36.0-47.0); HEMOGLOBIN 10.7 g/dl (12.0-15.5); MEAN CORPUSCULAR HGB CONC 31.2 g/dl (32.0-36.5); MEAN CORPUSCULAR VOLUME 76.9 fl (80.0-96.0); PLATELET COUNT, AUTOMATED 341 10^3/uL (150-450); POTASSIUM SERUM 3.7 MEQ/L (3.5-5.1); RED BLOOD COUNT 4.46 10^6/uL (4.00-5.40); SODIUM LEVEL 137 MEQ/L (136-145); WHITE BLOOD COUNT 7.7 10^3/uL (4.0-10.0)
--- NOTE | 2020-10-06 13:34 | REP ---
INDICATION: DUB. COMPARISON: 08/01/2020 TECHNIQUE: Transvesical and transvaginal imaging. FINDINGS: The uterus is unchanged in size, shape, and echo pattern. The endometrial echo complex is again seen to be within normal limits with a maximal thickness of 3 mm. Within the lower uterine segment possibly within the endometrial cavity there is a slightly perceptible area of increased echoes measuring approximately 2.2 x 0.6 x 1.2 cm. This represents change from the prior exam. The right ovary measures 4.3 x 1.8 x 2.4 cm and is within normal limits with an RI of 0.52. The left ovary measures 3.3 x 1.8 x 1.9 cm and is within normal limits with an RI of 0.56. There is no free fluid in the cul-de-sac. The urinary bladder was seen to be empty. IMPRESSION: Likely small collection of blood in the endometrial cavity as described above. It is likely non neoplastic since it was not present on the prior exam of 08/01/2020, however, that examination was transvesical approach only. Follow-up is suggested. <Electronically signed by Terence Khanna > 10/06/20 [id number]
[2020-10-06 14:26] LABS: HEMATOCRIT 32.6 % (36.0-47.0); HEMOGLOBIN 10.5 g/dl (12.0-15.5)
[2020-10-06] MEDS ORDERED: NS 1,000 ML IV ONE (14:45)
[2020-10-06] MEDS ORDERED: PROV10TA PO (15:29)
[2020-10-06] MEDS ORDERED: ESTR125TA PO (15:29)
[2020-10-06 16:15] VITALS: BP 137/80
--- NOTE | 2020-10-07 10:37 | ED PDOC ---
Post-Departure Follow-Up dr yun and lizzie lopez faxed fomral report of pelvic us for fu Arelis Tom MD Oct 07, 2020 10:37
== END 2020-10-06 16:24 | disposition home or self-care (01) ==
LOC: M ED 09:30
DX: N93.8 Other specified abnormal uterine and vaginal bleeding (principal)

== ENCOUNTER → 2020-12-12 | Outpatient (CLI) | payer OTHER ==
[~2020-12-12] MED LIST changes: +ESTR125TA PO; +ONDA-83; +PARO20TA3 PO; +PROV10TA PO; +TRAN650T PO; +XULA1DIS
== END ==
LOC: M LABSMTC 11:25
PROVIDERS: ATTEND Anesthesiology
DX: Z01.812 Encounter for preprocedural laboratory examination (principal); Z20.822 Contact with and (suspected) exposure to COVID-19

== ENCOUNTER → 2020-12-12 | Outpatient (CLI) | payer OTHER ==
--- NOTE | 2020-12-12 11:21 | REP ---
INDICATION: OTH DZ OF GB NAUSEA VOMITING. COMPARISON: None TECHNIQUE/RADIOTRACER AND DOSE: FOLLOWING THE INTRAVENOUS ADMINISTRATION OF 6.6 MCI TECHNETIUM 99 M-MEBROFENIN, MULTIPLE IMAGES OF THE RIGHT UPPER QUADRANT ARE PERFORMED FOR 60 MINUTES. NEXT 8 OZ OF ENSURE ENLIVE IS INGESTED AND FURTHER IMAGING IS PERFORMED FOR 65 MINUTES. FINDINGS: THE GALLBLADDER IS VISUALIZED AT 15 MINUTES POST INJECTION. There is no biliary to bowel transit by 1 hour.. THERE IS NO SCINTIGRAPHIC EVIDENCE OF CHOLECYSTITIS. There is biliary to bowel transit identified after ingestion of the Ensure. GALLBLADDER EJECTION FRACTION IS CALCULATED TO BE 48% WHICH IS NORMAL. 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 <Electronically signed by Ramiro Page > 12/12/20 [id number]
== END ==
LOC: M RAD 08:53
PROVIDERS: ATTEND Internal Medicine Gastroenterology
DX: K82.8 Other specified diseases of gallbladder (principal); R11.2 Nausea with vomiting, unspecified
CPT/HCPCS: 78227; A9537

== ENCOUNTER → 2021-01-18 | Outpatient (CLI) | payer OTHER | LOC: M LABSMTC 08:51 | PROVIDERS: ATTEND Anesthesiology | DX: Z01.812 Encounter for preprocedural laboratory examination (principal); Z20.822 Contact with and (suspected) exposure to COVID-19 ==

== ENCOUNTER 2021-02-16 11:08 | Emergency (ER) | payer OTHER ==
[~2021-02-16] VITALS: Ht 162.6 cm; Wt 63.6 kg
[2021-02-16] MEDS ORDERED: ONDA4TAB6 PO (11:25)
[2021-02-16] MEDS ORDERED: NS 1,000 ML IV ONE (12:20)
[2021-02-16] MEDS ORDERED: CAPSAICIN 0.025% CR 60 GM TOP ONE (12:35)
[2021-02-16 13:10] LABS: BASO % 0.4 % (0.0-1.0); EOS % 0.2 % (0.0-3.0); HEMATOCRIT 30.3 % (36.0-47.0); LYMPH # 1.2 10^3/uL (1.5-5.0); LYMPH % 12.2 % (24.0-44.0); MEAN CORPUSCULAR HGB CONC 29.7 g/dl (32.0-36.5); MEAN CORPUSCULAR VOLUME 67.5 fl (80.0-96.0); MONO # 0.7 10^3/uL (0.0-0.8); MONO % 6.8 % (2.0-8.0); NEUTROPHILS # 7.8 10^3/uL (1.5-8.5); NEUTROPHILS % 80.1 % (36.0-66.0); PLATELET COUNT, AUTOMATED 399 10^3/uL (150-450); RED BLOOD COUNT 4.49 10^6/uL (4.00-5.40); WHITE BLOOD COUNT 9.7 10^3/uL (4.0-10.0)
[2021-02-16 13:40] LABS: ALT/SGPT 13 U/L (12-78); BILIRUBIN,DIRECT 0.2 MG/DL (0.0-0.2); BILIRUBIN,TOTAL 0.5 MG/DL (0.2-1.0); BLOOD UREA NITROGEN 11 MG/DL (7-18); CALCIUM LEVEL 8.8 MG/DL (8.5-10.1); CARBON DIOXIDE LEVEL 21 MEQ/L (21-32); CHLORIDE LEVEL 111 MEQ/L (98-107); CREATININE FOR GFR 0.85 MG/DL (0.55-1.30); GLOMERULAR FILTRATION RATE > 60.0 (>60); GLUCOSE, FASTING 100 MG/DL (70-100); LIPASE 57 U/L (73-393); POTASSIUM SERUM 3.7 MEQ/L (3.5-5.1); SODIUM LEVEL 141 MEQ/L (136-145)
[2021-02-16 14:15] VITALS: BP 128/61
--- NOTE | 2021-02-17 19:49 | ECGEPIP ---
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
== END 2021-02-16 14:23 | disposition home or self-care (01) ==
LOC: EDBD 11:08 → M ED 11:08
DX: R11.15 Cyclical vomiting syndrome unrelated to migraine (principal); R11.0 Nausea; D64.9 Anemia, unspecified; K52.9 Noninfective gastroenteritis and colitis, unspecified; F17.200 Nicotine dependence, unspecified, uncomplicated; F12.10 Cannabis abuse, uncomplicated

== ENCOUNTER 2021-02-20 10:34 | Emergency (ER) | payer OTHER ==
[~2021-02-20] VITALS: Ht 162.6 cm; Wt 62.7 kg
[2021-02-20] MEDS ORDERED: NS 1,000 ML IV ONE (11:45)
[2021-02-20] MEDS ORDERED: ONDANSETRON 4MG/2ML VIAL IV ONE (11:45)
[2021-02-20 12:09] LABS: BASO % 0.3 % (0.0-1.0); EOS % 0.1 % (0.0-3.0); HEMATOCRIT 32.8 % (36.0-47.0); HEMOGLOBIN 9.9 g/dl (12.0-15.5); LYMPH # 2.2 10^3/uL (1.5-5.0); LYMPH % 24.8 % (24.0-44.0); MEAN CORPUSCULAR HEMOGLOBIN 20.2 pg (27.0-33.0); MEAN CORPUSCULAR HGB CONC 30.2 g/dl (32.0-36.5); MEAN CORPUSCULAR VOLUME 66.8 fl (80.0-96.0); MONO # 0.7 10^3/uL (0.0-0.8); MONO % 7.9 % (2.0-8.0); NEUTROPHILS # 5.8 10^3/uL (1.5-8.5); NEUTROPHILS % 66.4 % (36.0-66.0); PLATELET COUNT, AUTOMATED 409 10^3/uL (150-450); RED BLOOD COUNT 4.91 10^6/uL (4.00-5.40); WHITE BLOOD COUNT 8.7 10^3/uL (4.0-10.0)
[2021-02-20] MEDS ORDERED: KCL 10MEQ/100ML SWI (KRUN) 10 MEQ in IV 1 EA IV ONE (12:15)
[2021-02-20] MEDS ORDERED: POTASSIUM CHLORIDE 10 MEQ SR TABLET PO ONE (12:15)
[2021-02-20] MEDS ORDERED: ISOVUE-370 76% 100ML VIAL As Ordered ONE (12:34)
[2021-02-20 12:47] LABS: ALBUMIN 4.1 GM/DL (3.2-5.2); ALT/SGPT 15 U/L (12-78); BILIRUBIN,DIRECT < 0.1 MG/DL (0.0-0.2); BILIRUBIN,TOTAL 0.7 MG/DL (0.2-1.0); LIPASE 36 U/L (73-393); MAGNESIUM LEVEL 2.5 MG/DL (1.8-2.4); TOTAL PROTEIN 7.6 GM/DL (6.4-8.2)
--- NOTE | 2021-02-20 12:58 | REP ---
INDICATION: diffuse abd pain, worse lower quadrants COMPARISON: 09/24/2020. TECHNIQUE: CT Scan of the abdomen and pelvis was performed with intravenous administration of 100 cc of Isovue 370, without oral contrast. Sagittal and coronal reconstruction images are performed. FINDINGS: Lung bases: There is a stable 7 mm nodular density in the left posterior costophrenic sulcus. Liver: There is stable 7 mm enhancing nodule adjacent to the gallbladder in the right lobe of the liver not significantly changed and probably representing a small hemangioma. Gallbladder: Unremarkable. Spleen: Normal. Adrenals: Normal. Pancreas: Normal. Kidneys: Normal. Small and large bowel: Unremarkable. Free fluid: None. Abdominal aorta: No aneurysm or dissection. Adenopathy: None. Appendix: Not inflamed. Osseous structures: Unremarkable. Pelvis: No mass. IMPRESSION: No change since prior study of 09/24/2020. No acute pathology. <Electronically signed by Ramiro Page > 02/20/21 [id number]
[2021-02-20] MEDS ORDERED: PROMETHAZINE INJ 25 MG/ML VIAL (J2550) IM ONE (13:45)
[2021-02-20 14:52] VITALS: BP 148/84
[2021-02-20] MEDS ORDERED: PROT1TAB2 PO (15:32)
[2021-02-20] MEDS ORDERED: SUCR1SS PO (15:32)
== END 2021-02-20 15:48 | disposition home or self-care (01) ==
LOC: M ED 10:34
DX: R11.2 Nausea with vomiting, unspecified (principal); G43.A0 Cyclical vomiting, in migraine, not intractable; F12.10 Cannabis abuse, uncomplicated; R91.1 Solitary pulmonary nodule; R93.2 Abnormal findings on diagnostic imaging of liver and biliary tract
CPT/HCPCS: 74177; 80047; 80076; 83690; 83735; 84702; 85025; 96365; 96366; 96372; 96375; 99284; J2405; Q9967

== ENCOUNTER → 2021-03-25 | Outpatient (CLI) | payer OTHER ==
[~2021-03-25] MED LIST changes: +PROT1TAB2 PO; +SUCR1SS PO
== END ==
LOC: M LABSMTC 12:01
PROVIDERS: ATTEND Anesthesiology
DX: Z01.812 Encounter for preprocedural laboratory examination (principal); Z20.822 Contact with and (suspected) exposure to COVID-19